=== PATIENT | male | born 1945 | race Caucasian/White ===

== ENCOUNTER 2024-02-17 08:56 | Day surgery (SDC) | payer MEDICARE, BC ==
[2024-02-13 11:43] LABS: BASOPHILS % (AUTO) 0.6 % (0-1); EOSINOPHILS # (AUTO) 0.1 X10'3 (0-0.9); EOSINOPHILS % (AUTO) 1.1 % (0-6); LYMPHOCYTES # (AUTO) 1.8 X10'3 (1.1-4.8); MEAN CORPUSCULAR HEMOGLOBIN 32.4 PG (27.0-31.0); MEAN CORPUSCULAR HGB CONC 34.3 g/dL (33.0-36.5); MEAN CORPUSCULAR VOLUME 94.5 FL (78-98); MEAN PLATELET VOLUME 8.2 FL (7.4-10.4); MONOCYTES # (AUTO) 0.5 X10'3 (0-0.9); NEUTROPHILS # (AUTO) 4.2 X10'3 (1.8-7.7); NEUTROPHILS % (AUTO) 63.3 % (42-75); PRE OP HEMATOCRIT 45.9 % (42.0-52.0); PRE OP HEMOGLOBIN 15.8 g/dL (14.0-17.9); PRE OP PLATELET COUNT 252 X10'3 (140-440); PRE OP WHITE BLOOD COUNT 6.6 10'3 (4.8-10.8); RED BLOOD COUNT 4.86 X10'6 (4.70-6.10); RED CELL DISTRIBUTION WIDTH 13.7 % (11.5-14.5)
[2024-02-13 12:10] LABS: ALBUMIN 4.2 G/DL (3.4-5.0); ALBUMIN/GLOBULIN RATIO 1.2 (1.1-1.5); ALKALINE PHOSPHATASE 78 IU/L (46-116); BLOOD UREA NITROGEN 17 MG/DL (7-18); BUN/CREATININE RATIO 15.7 (10.0-20.0); CALCIUM 9.2 MG/DL (8.5-10.1); CHLORIDE 104 MMOL/L (99-107); CREATININE 1.08 MG/DL (0.60-1.10); PRE OP ALT 21 U/L (30-65); PRE OP ANION GAP 8 (8-16); PRE OP AST 19 U/L (10-37); PRE OP BILIRUB, TOTAL 0.6 MG/DL (0.0-1.0); PRE OP GLUCOSE 104 MG/DL (70-104); PRE OP SODIUM 138 MMOL/L (135-145); TOTAL CARBON DIOXIDE 25.9 MMOL/L (24-32); TOTAL PROTEIN 7.6 G/DL (6.4-8.2); eGFR 66 ML/MIN
[~2024-02-17] VITALS: Ht 185.4 cm; Wt 88.1 kg
[~2024-02-17 08:56] MED LIST: FLO0.4C PO; LISI1TAB51 PO
[2024-02-17] MEDS ORDERED: labetalol 20mg/4ml (5mg/ml) syringe IV PRN (09:55)
[2024-02-17] MEDS ORDERED: morphine 4 MG/ML inj SYRINge IV PRN (09:55)
[2024-02-17] MEDS ORDERED: proCHLORperazine 10 MG/2 ml inj IV PRN (09:55)
[2024-02-17] MEDS ORDERED: enalaprilat dihydrate 2.5mg/2ml vial IV PRN (09:55)
[2024-02-17] MEDS ORDERED: ringers solution, lacted 1,000 ML IV SCH (09:55)
[2024-02-17] MEDS ORDERED: meperidine/PF 25mg/ml syringe IV PRN ×3 (09:55)
[2024-02-17] MEDS ORDERED: ondansetron/PF 4mg/2ml inj IV PRN (09:55)
[2024-02-17] MEDS ORDERED: morphine 2 MG/ML inj. syringe IV PRN (09:55)
[2024-02-17] MEDS: ringers solution, lacted 1,000 ML IV SCH (10:08)
[2024-02-17] MEDS: cefazolin 2gm/D5W 100mL 100 ML IV ONE (10:11)
[2024-02-17] MEDS ORDERED: LIDOcaine 2% (20mg/ml) 5ml vial ONE (10:50)
[2024-02-17] MEDS: famotidine 20mg tablet PO ONE (10:52)
[2024-02-17] MEDS ORDERED: midazolam 1 mg/ML 2ml injection ONE (10:56)
[2024-02-17] MEDS ORDERED: fentaNYL/PF 50MCG/1 ML 2ML syringe ONE (10:57)
[2024-02-17] MEDS ORDERED: BUPIVAcaine/PF 2.5mg/ml (0.25%) 10ml vial ONE (11:05)
[2024-02-17] MEDS ORDERED: LIDOcaine 0.5% (5mg/ml) 50ml vial ONE (11:10)
[2024-02-17] MEDS: BUPIVAcaine 0.25% w/Epi /PF 30ml vial IJ ONE (11:28)
[2024-02-17 11:56] VITALS: BP 141/90; PULSE 59; RESP 18; O2SAT 96
[2024-02-17 12:09] VITALS: BP 150/98; PULSE 62; RESP 16; TEMP 97.7; O2SAT 99
[2024-02-17 12:10] VITALS: BP_SYST 133; BP_SYST 150; BP_DIAS 81; BP_DIAS 98; PULSE 60; PULSE 62; RESP 16; TEMP 97.7; O2SAT 96; O2SAT 99
[2024-02-17 12:15] VITALS: RESP 16; O2SAT 99
[2024-02-17 12:20] VITALS: BP 129/84; PULSE 54; RESP 13; O2SAT 98
[2024-02-17 12:30] VITALS: BP 142/92; PULSE 56; RESP 17; O2SAT 97
== END 2024-02-17 12:36 | disposition home or self-care (01) ==
LOC: PRE-OP 08:56 → PAS 12:36 → EDSEX 13:30
PROVIDERS: ATTEND Orthopaedic Surgery Hand Surgery
DX: S66.314A Strain of extensor muscle, fascia and tendon of right ring finger at wrist and hand level, initial encounter (principal); S66.316A Strain of extensor muscle, fascia and tendon of right little finger at wrist and hand level, initial encounter; I49.1 Atrial premature depolarization; I10 Essential (primary) hypertension; I48.91 Unspecified atrial fibrillation; I25.2 Old myocardial infarction; M19.90 Unspecified osteoarthritis, unspecified site; Z79.899 Other long term (current) drug therapy; Z96.652 Presence of left artificial knee joint; Z98.890 Other specified postprocedural states; X58.XXXA Exposure to other specified factors, initial encounter; Y93.89 Activity, other specified; Y92.89 Other specified places as the place of occurrence of the external cause; Y99.8 Other external cause status
CPT/HCPCS: 26497; 36415; 80053; 82948; 85025; 93005; A4215; A4618; A7000; J0690; J2001; J2250; J2704; J3010; J3490; J7030; J7120; Z7506; Z7512; Z7610; 88304; S0020